=== PATIENT | male | born 1995 | race Caucasian/White ===

== ENCOUNTER → 2016-11-18 | Outpatient (CLI) | payer OTHER ==
--- NOTE | 2016-11-18 11:13 | Diagnostic Imaging Report ---
EXAMINATION: Magnetic resonance imaging of the right knee without intravenous contrast DATE: November 18, 2016. COMPARISON: None. INDICATION: 20-year-old male, injury playing basketball one week ago. Evaluation for tear of the lateral meniscus. TECHNIQUE: Multiplanar, multisequence non contrast enhanced MR imaging was accomplished. FINDINGS: MENISCI: The medial meniscus is intact. The lateral meniscus is intact. LIGAMENTS AND TENDONS: The anterior and posterior cruciate ligaments are intact. The medial collateral ligament is intact. The iliotibial band, mid third lateral capsular ligament, fibular collateral ligament, biceps femoris tendon and conjoined tendon are intact. The quadriceps tendon and patella ligament are intact. JOINT: The articular cartilage surfaces are intact. No effusion. BONE: There is edema-like signal in the lateral tibial plateau, questionable low signal fracture line in the subchondral bone at this location perhaps best illustrated on coronal T1 sequence image 17. There is no offset of the articulating surface of the lateral tibial plateau. The additional bone marrow signal is unremarkable. BURSAE AND SOFT TISSUES: No Bakers cyst. IMPRESSION: 1. Findings consistent with at least bone contusion of the lateral tibial plateau with a questionable nondisplaced low signal subchondral fracture line. No offset of the articulating surface of the lateral tibial plateau or intra-articular extension of the fracture. 2. Intact menisci and cruciate ligaments. Additional ligaments and tendons are also intact. 3. Intact articular cartilage. No knee joint effusion. Dictated by: Dictated on workstation # [id number]
== END ==
LOC: RAD 10:09
PROVIDERS: ATTEND Orthopaedic Surgery
DX: S80.11XA Contusion of right lower leg, initial encounter (principal); X58.XXXA Exposure to other specified factors, initial encounter; Y93.67 Activity, basketball; Y99.8 Other external cause status
CPT/HCPCS: 73721